=== PATIENT | male | born 1985 | race Caucasian/White ===

== ENCOUNTER 2016-08-19 01:21 | Emergency (ER) | payer MEDICAID ==
[~2016-08-19] VITALS: Ht 172.7 cm; Wt 127.0 kg
[~2016-08-19 01:21] MED LIST: ALPR2TAB95
[2016-08-19 01:25] VITALS: BP 152/76
== END 2016-08-19 02:20 | disposition left against medical advice (07) ==
LOC: EDUNIT# 01:21 → ER 01:42
DX: M79.89 Other specified soft tissue disorders (principal); Z53.21 Procedure and treatment not carried out due to patient leaving prior to being seen by health care provider